=== PATIENT | male | born 1965 | race Two or more races ===

== ENCOUNTER → 2024-10-31 | Outpatient (CLI) | payer MEDICAID | END | disposition home or self-care (01) | LOC: RT 11:03 | PROVIDERS: ATTEND Internal Medicine Pulmonary Disease | DX: J44.9 Chronic obstructive pulmonary disease, unspecified (principal); R06.00 Dyspnea, unspecified; Z87.891 Personal history of nicotine dependence | CPT/HCPCS: 94060; 94618; 94727; 94729 ==

== ENCOUNTER 2025-04-30 08:53 | Outpatient (CLI) | payer MEDICAID ==
[~2025-04-30] VITALS: Ht 175.3 cm; Wt 104.3 kg
[2025-04-30] MEDS: REGADENOSON 0.4 MG/5 ML SYRG IV ONE ×2 (11:09)
--- NOTE | 2025-04-30 13:01 | DVHSR ---
APPROVED REPORT Exam: Nuclear Stress Test BMI: 0 Stress Test Details HR Max Heart Rate (APMHR): 160.630646 bpm Target HR (85% APMHR): 136.677093 bpm BP ECG Stress ECG Conclusion lvef 78% normal perfusion scan no severe ischemia noted NM EXAM: Myocardial Perfusion REST/STRESS Imaging Protocol: Rest Tc-99m/Stress Tc-99m 1 day Resting Data Rest SPECT myocardial perfusion imaging was performed in supine position 60 minutes following the int ravenous injection of 12.5 mCi of Tc-99m Sestamibi. Time of rest injection: 09:40 Date: 04/30/2025 Time of rest imagin:40 Date: 04/30/2025 Administration Route: IV Administration Site: Right AC Pharmacologic Stress Pharmacologic stress test was performed by injecting Regadenoson 0.4 mg IV push followed by the intra venous injection of 30.9 mCi of Tc-99m Sestamibi. Time of stress injection: 11:00 Date: 04/30/2025 Time of stress imagin:00 Date: 04/30/2025 Administration Route: IV Administration Site: Right AC Gated Stress SPECT was performed 60 minutes after stress injection. The images were gated to evaluate regional wall motion and calculate left ventricular ejection fracti on. Stress only was performed in the Supine position. Nuclear Conclusion Nuclear Findings: negative for ischemia lvef 78% normal perfusion scan no severe ischemia noted
== END 2025-04-30 17:00 | disposition home or self-care (01) ==
LOC: XYW 08:53
PROVIDERS: ATTEND Student in an Organized Health Care Education/Training Program
DX: R07.9 Chest pain, unspecified (principal); R06.02 Shortness of breath; I25.10 Atherosclerotic heart disease of native coronary artery without angina pectoris; E78.5 Hyperlipidemia, unspecified; J44.9 Chronic obstructive pulmonary disease, unspecified; E66.9 Obesity, unspecified
CPT/HCPCS: 78452; 93017; A9500; J2785